=== PATIENT | female | born 1995 | race Caucasian/White ===

== ENCOUNTER 2017-01-12 18:50 | Emergency (ER) | payer BC, OTHER ==
[2017-01-12 19:02] VITALS: BP 121/63
[2017-01-12] MEDS ORDERED: Sodium Chloride 0.9% 10 ML Syringe FLUSH PRN (19:12)
[2017-01-12] MEDS ORDERED: Sodium Chloride 0.9% 1,000 ML IV SCH ×2 (19:15→20:45)
[2017-01-12] MEDS ORDERED: Ondansetron 4 MG/2 ML SDV IVPUSH ONE ×2 (19:16→22:11)
[2017-01-12 20:06] LABS: CHLORIDE,CL 101 mmol/L (98-107); SODIUM,NA 139 mmol/L (136-145)
--- NOTE | 2017-01-12 20:20 | EDM.PDOC ---
ED HPI GI/ABDOMINAL - General Chief Complaint: Gastrointestinal Problem Stated Complaint: NAUSEA VOMITING DIARRHEA Time Seen by Provider: 01/12/17 19:00 Source of Information: Reports: Patient, Family, RN, RN notes reviewed History Limitations: Reports: No limitations - History of Present Illness INITIAL COMMENTS - FREE TEXT/NARRATIVE: Patient present to the ED at [facility] with a 2 day history of severe diarrhea, nausea, and vomiting. Patient states her abdominal pain feels like sharp, stabbing pains. Patient states the diarrhea is watery and very foul smelling. The patients has between 6-7 stools per day. Patient is trying to stay hydrated, but vomits frequently. Patient states she was exposed to cattle that tested positive for E. Coli. Symptom Onset Date: 01/10/17 Timing/Duration: Reports: Getting worse Location: generalized Quality: Reports: stabbing Severity: moderate Improves with: Reports: lying down Worsens with: Reports: defecating, vomiting, palpation, sitting up Context: Reports: sick contact. Denies: bad/questionable food, out of country travel, recent surgery, recent trauma Associated Symptoms (-Female): Reports: diarrhea, nausea/vomiting. Denies: back pain, bloody stools - Related Data Allergies/ADRs: Allergies Allergy/AdvReac Type Severity Reaction Status Date / Time amoxicillin Allergy Hives Verified 01/12/17 19:02 Home Meds: Home Meds Ondansetron HCl [Zofran] 4 mg PO Q8HR PRN #30 tablet 01/12/17 [Rx] Past Medical History - Past Health History Medical/Surgical History: Denies Medical/Surgical History - Past Surgical History HEENT Surgical History: Reports: Other (see below) Other HEENT Surgeries/Procedures: Cope teeth Social & Family History - Tobacco Use Smoking Status *Q: Current Every Day Smoker Years of Tobacco use: 6 Packs/Tins Daily: 0.5 - Caffeine Use Caffeine Use: Reports: Coffee, Energy drinks, Soda Caffeine Use Comment: Mostly soda, rarely coffee and even more rare and energy drink - Alcohol Use Days Per Week of Alcohol Use: 1 Number of Drinks Per Day: 2 Total Drinks Per Week: 2 - Recreational Drug Use Recreational Drug Use: No ED ROS GENERAL - Review of Systems Review Of Systems: See Below Constitutional: Reports: decreased appetite, weight loss. Denies: fever, chills , weakness Respiratory: Denies: Shortness of Breath, Cough Cardiovascular: Denies: Chest pain, Palpitations GI/Abdominal: Reports: Abdominal pain, Diarrhea, Mucous in stool, Nausea, Vomiting. Denies: Black stool, Bloody stool, Melena Skin: Reports: no symptoms Neurological: Reports: No Symptoms. Denies: Dizziness, Headache, Numbness, Paresthesia, Tingling ED EXAM, GI/ABD - Physical Exam Exam: See Below Exam Limited By: No limitations General Appearance: alert, mild distress Respiratory/Chest: no respiratory distress, lungs clear, normal breath sounds Cardiovascular: normal peripheral pulses, regular rate, rhythm GI/Abdominal: hyperactive bowel sounds, tenderness, guarding. No: distention, rebound, rigidity Neurological: alert, oriented Skin Exam: Warm, Dry, Intact, Normal color, No rash Course - Vital Signs Last Recorded V/S: Last Vital Signs Temp 36.9 C 01/12/17 18:55 Pulse 92 01/12/17 18:55 Resp 16 01/12/17 18:55 BP 121/63 01/12/17 18:55 Pulse Ox 98 01/12/17 18:55 - Orders/Labs/Meds Orders: Active Orders 24 hr Category Date Time Status Abdomen 2V AP Flat Upright [CR] Stat Exams 01/12/17 19:13 Taken Abdomen Pelvis w Cont [CT] Stat Exams 01/12/17 20:22 Taken STOOL CULTURE/SHIGA TOXIN [MREF] Stat Lab 01/12/17 21:25 Ordered Ondansetron [Zofran] Med 01/12/17 22:11 Once 4 mg IVPUSH ONETIME ONE Sodium Chloride 0.9% [Normal Saline] 1,000 ml Med 01/12/17 19:15 Active IV ASDIRECTED Sodium Chloride 0.9% [Normal Saline] 1,000 ml Med 01/12/17 20:45 Active IV ASDIRECTED Sodium Chloride 0.9% [Saline Flush] Med 01/12/17 19:12 Active 10 ml FLUSH ASDIRECTED PRN Peripheral IV Insertion Adult [OM.PC] Routine Oth 01/12/17 19:12 Ordered Medication Orders Sodium Chloride (Normal Saline) 1,000 mls @ 999 mls/hr IV ASDIRECTED TORSTEN Last Admin: 01/12/17 19:46 Dose: 999 mls/hr Sodium Chloride (Normal Saline) 1,000 mls @ 999 mls/hr IV ASDIRECTED TORSTEN Last Admin: 01/12/17 20:48 Dose: 999 mls/hr Sodium Chloride (Saline Flush) 10 ml FLUSH ASDIRECTED PRN PRN Reason: Keep Vein Open Labs: Laboratory Tests 01/12/17 01/12/17 01/12/17 Range/Units 19:30 19:30 19:39 WBC 8.3 (4.0-10.0) x10^3/uL RBC 4.97 (4.00-5.50) x10^6/uL Hgb 15.8 (12.0-16.0) g/dL Hct 44.9 (33.0-47.0) % MCV 90.3 (78.0-93.0) fL MCH 31.8 (26.0-32.0) pg MCHC 35.2 (32.0-36.0) g/dL RDW Coeff of Oma 12.2 (10.0-15.0) % Plt Count 254 (130-400) x10^3/uL Neut % (Auto) 85.6 H (50.0-80.0) % Lymph % (Auto) 9.6 L (25.0-50.0) % [place] % (Auto) 4.6 (2.0-11.0) % Eos % (Auto) 0.1 (0.0-4.0) % Baso % (Auto) 0.1 L (0.2-1.2) % Sodium (136-145) mmol/L Potassium (3.5-5.1) mmol/L Chloride (98-107) mmol/L Carbon Dioxide (21-32) mmol/L BUN (7-18) mg/dL Creatinine (0.55-1.02) mg/dL Est Cr Clr Drug Dosing mL/min Estimated GFR (MDRD) Glucose (74-106) mg/dL Calcium (8.5-10.1) mg/dL Corrected Calcium (8.5-10.1) mg/dL Phosphorus (2.6-4.7) mg/dL Magnesium (1.8-2.4) mg/dL Total Bilirubin (0.2-1.0) mg/dL AST (15-37) U/L ALT (14-59) U/L Alkaline Phosphatase (46-116) U/L Total Protein (6.4-8.2) g/dL Albumin (3.4-5.0) g/dL Globulin Albumin/Globulin Ratio Urine Color Yellow (YELLOW) Urine Appearance Cloudy H (CLEAR) Urine pH 5.5 (5.0-8.0) Ur Specific [place] >=1.030 Urine Protein 30 H (NEGATIVE) mg/dL Urine Glucose (UA) Negative (NEGATIVE) mg/dL Urine Ketones 40 H (NEGATIVE) mg/dL Urine Occult Blood Moderate H (NEGATIVE) Urine Nitrite Negative (NEGATIVE) Urine Bilirubin Small H (NEGATIVE) Urine Urobilinogen 0.2 (0.2) EU/dL Ur Leukocyte Esterase Negative (NEGATIVE) Urine RBC 20-30 H (NOT SEEN) /HPF Urine WBC 0-5 (NOT SEEN) /HPF Ur Squamous Epith Cells Few H (NEGATIVE) /HPF Urine Bacteria Few H (NEGATIVE) /HPF Urine Mucus Moderate H (NEGATIVE) /LPF Urine HCG, Qual Negative (NEGATIVE) 01/12/17 Range/Units 19:39 WBC (4.0-10.0) x10^3/uL RBC (4.00-5.50) x10^6/uL Hgb (12.0-16.0) g/dL Hct (33.0-47.0) % MCV (78.0-93.0) fL MCH (26.0-32.0) pg MCHC (32.0-36.0) g/dL RDW Coeff of Oma (10.0-15.0) % Plt Count (130-400) x10^3/uL Neut % (Auto) (50.0-80.0) % Lymph % (Auto) (25.0-50.0) % [place] % (Auto) (2.0-11.0) % Eos % (Auto) (0.0-4.0) % Baso % (Auto) (0.2-1.2) % Sodium 139 (136-145) mmol/L Potassium 3.7 (3.5-5.1) mmol/L Chloride 101 (98-107) mmol/L Carbon Dioxide 26 (21-32) mmol/L BUN 17 (7-18) mg/dL Creatinine 0.9 (0.55-1.02) mg/dL Est Cr Clr Drug Dosing 98.91 mL/min Estimated GFR (MDRD) > 60 Glucose 93 (74-106) mg/dL Calcium 8.9 (8.5-10.1) mg/dL Corrected Calcium 8.74 (8.5-10.1) mg/dL Phosphorus 4.8 H (2.6-4.7) mg/dL Magnesium 2.0 (1.8-2.4) mg/dL Total Bilirubin 0.4 (0.2-1.0) mg/dL AST 21 (15-37) U/L ALT 28 (14-59) U/L Alkaline Phosphatase 86 (46-116) U/L Total Protein 8.0 (6.4-8.2) g/dL Albumin 4.2 (3.4-5.0) g/dL Globulin 3.8 Albumin/Globulin Ratio 1.11 Urine Color (YELLOW) Urine Appearance (CLEAR) Urine pH (5.0-8.0) Ur Specific [place] Urine Protein (NEGATIVE) mg/dL Urine Glucose (UA) (NEGATIVE) mg/dL Urine Ketones (NEGATIVE) mg/dL Urine Occult Blood (NEGATIVE) Urine Nitrite (NEGATIVE) Urine Bilirubin (NEGATIVE) Urine Urobilinogen (0.2) EU/dL Ur Leukocyte Esterase (NEGATIVE) Urine RBC (NOT SEEN) /HPF Urine WBC (NOT SEEN) /HPF Ur Squamous Epith Cells (NEGATIVE) /HPF Urine Bacteria (NEGATIVE) /HPF Urine Mucus (NEGATIVE) /LPF Urine HCG, Qual (NEGATIVE) Meds: Medications Generic Name Dose Route Start Last Admin Trade Name Freq PRN Reason Stop Dose Admin Sodium Chloride 1,000 mls @ 999 mls/hr 01/12/17 19:15 01/12/17 19:46 Normal Saline IV 999 mls/hr ASDIRECTED TORSTEN Administration Sodium Chloride 1,000 mls @ 999 mls/hr 01/12/17 20:45 01/12/17 20:48 Normal Saline IV 999 mls/hr ASDIRECTED TORSTEN Administration Sodium Chloride 10 ml 01/12/17 19:12 Saline Flush FLUSH ASDIRECTED PRN Keep Vein Open Discontinued Medications Generic Name Dose Route Start Last Admin Trade Name Freq PRN Reason Stop Dose Admin Sodium Chloride 100 mls @ 2 mls/sec 01/12/17 20:30 01/12/17 20:44 Normal Saline IV 01/12/17 20:31 2 mls/sec ONETIME ONE Administration Iopamidol 100 ml 01/12/17 20:30 01/12/17 20:45 Isovue-300 (61%) IVPUSH 01/12/17 20:31 100 ml ONETIME ONE Administration Ondansetron HCl 4 mg 01/12/17 19:16 01/12/17 19:46 Zofran IVPUSH 01/12/17 19:17 4 mg ONETIME ONE Administration Departure - Departure Time of Disposition: 22:12 Disposition: Home, Self-Care 01 Condition: good Clinical Impression: Nausea & vomiting Qualifiers: Vomiting type: unspecified Vomiting Intractability: non-intractable Qualified Code(s): R11.2 - Nausea with vomiting, unspecified Diarrhea Qualifiers: Diarrhea type: unspecified type Qualified Code(s): R19.7 - Diarrhea, unspecified Prescriptions: Ondansetron HCl [Zofran] 4 mg PO Q8HR PRN #30 tablet PRN Reason: Nausea/Vomiting Instructions: Diarrhea, Adult, Nausea and Vomiting, Adult Referrals: Delphine Flores PA-C [Primary Care Provider] - Forms: ED Department Discharge Additional Instructions: 1. Stay well hydrated and rest 2. Eat a bland diet; avoid fatty, greasy foods 3. Obtain the stool sample and return as soon as possible 4. Take nausea medication every 8 hours as needed 5. When stool culture results are available, we will contact you 6. If symptoms worsen, let us know 7. See your Primary as symptoms warrant ED Communication - ED Communication Date/Time Date: 01/12/17 Time Called: 20:22 - Discussed Case With (1) Discussed Case With (1): Radiologist Person/s Notified (1): Macario Vick - Problem List Review Problem List Initiated/Reviewed/Updated: Yes - My Orders Last 24 Hours: My Active Orders 01/12/17 19:12 Sodium Chloride 0.9% [Saline Flush] 10 ml FLUSH ASDIRECTED PRN Peripheral IV Insertion Adult [OM.PC] Routine 01/12/17 19:13 Abdomen 2V AP Flat Upright [CR] Stat 01/12/17 19:15 Sodium Chloride 0.9% [Normal Saline] 1,000 ml IV ASDIRECTED 01/12/17 20:22 Abdomen Pelvis w Cont [CT] Stat 01/12/17 20:45 Sodium Chloride 0.9% [Normal Saline] 1,000 ml IV ASDIRECTED 01/12/17 21:25 STOOL CULTURE/SHIGA TOXIN [MREF] Stat 01/12/17 22:11 Ondansetron [Zofran] 4 mg IVPUSH ONETIME ONE - Assessment/Plan Last 24 Hours: My Active Orders 01/12/17 19:12 Sodium Chloride 0.9% [Saline Flush] 10 ml FLUSH ASDIRECTED PRN Peripheral IV Insertion Adult [OM.PC] Routine 01/12/17 19:13 Abdomen 2V AP Flat Upright [CR] Stat 01/12/17 19:15 Sodium Chloride 0.9% [Normal Saline] 1,000 ml IV ASDIRECTED 01/12/17 20:22 Abdomen Pelvis w Cont [CT] Stat 01/12/17 20:45 Sodium Chloride 0.9% [Normal Saline] 1,000 ml IV ASDIRECTED 01/12/17 21:25 STOOL CULTURE/SHIGA TOXIN [MREF] Stat 01/12/17 22:11 Ondansetron [Zofran] 4 mg IVPUSH ONETIME ONE
[2017-01-12] MEDS ORDERED: Sodium Chloride 0.9% 100 ML IV ONE (20:30)
[2017-01-12] MEDS ORDERED: Iopamidol 612 MG/ML 100 ML Bottle IVPUSH ONE (20:30)
== END 2017-01-12 22:28 | disposition home or self-care (01) ==
LOC: SUPCPDRO 18:50 → VM.ED 18:50
DX: R11.2 Nausea with vomiting, unspecified (principal); R19.7 Diarrhea, unspecified; F17.210 Nicotine dependence, cigarettes, uncomplicated; Z88.1 Allergy status to other antibiotic agents
CPT/HCPCS: 74020; 74177; 80053; 81001; 81025; 83735; 84100; 85025; 87045; 87046; 87899; 96365; 96366; 96375; 96376; 99284; J2405; J7030; J7050; Q9967; 87077